=== PATIENT | female | born 2000 | race Hispanic/Latino ===

== ENCOUNTER 2024-12-17 10:59 | Inpatient (IN) | payer OTHER, SELFPAY ==
[2024-12-17] MEDS ORDERED: HYDROcodone/Acetaminophen 5/325 mg Tablet PO PRN (11:23)
[2024-12-17] MEDS ORDERED: Carboprost 250 MCG/ML AMP IM PRN (11:23)
[2024-12-17] MEDS ORDERED: Ondansetron PF 4 MG/2 ML Vial IVP PRN ×2 (11:23→13:45)
[2024-12-17] MEDS ORDERED: Diphenoxylate HCl/Atropine Tablet PO PRN ×2 (11:23)
[2024-12-17] MEDS ORDERED: hydrALAZINE 20 MG/ML VIAL SLOW IVP PRN ×3 (11:23→13:45)
[2024-12-17] MEDS ORDERED: Methylergonovine 0.2 MG/ML VIAL IM PRN ×2 (11:23→13:45)
[2024-12-17] MEDS ORDERED: Lidocaine 1% (PF) 30 ML VIAL SC PRN (11:23)
[2024-12-17] MEDS ORDERED: Oxytocin 30 units/NS 500 ML 500 ML IV SCH ×4 (11:30→13:45)
[2024-12-17 11:37] LABS: Hematocrit 34.2 % (34.9-44.5); Hemoglobin 10.8 g/dL (12.0-15.5); Mean Corpuscular Hemoglobin 26.3 pg (27.0-33.0); Mean Corpuscular Volume 83.2 fL (81.6-98.3); Platelet Count 208 10x3/uL (150-450); Red Blood Cell (RBC) Count 4.11 10x6/uL (3.90-5.03); White Blood Cell (WBC) Count 10.94 10x3/uL (3.5-10.5)
[2024-12-17 11:55] VITALS: BMI 34.3
[2024-12-17 12:13] LABS: Syphilis Antibody Index 0.05 S/CO (<1.00 Non-Reactive)
[2024-12-17 12:14] LABS: Hep B Surf Ag - L&D Non-Reactive S/CO (NonReactive)
[2024-12-17] MEDS: Oxytocin 30 units/NS 500 ML 500 ML ONE (13:13)
[2024-12-17] MEDS: Lidocaine 1% (PF) 30 ML VIAL ONE (13:15)
[2024-12-17] MEDS: Ibuprofen 800 MG TAB PO PRN (13:42)
[2024-12-17] MEDS ORDERED: Preparation H Ointment 28 GM TUBE PR PRN (13:45)
[2024-12-17] MEDS ORDERED: Benzocaine-Menthol 82.5 ML CAN TOP PRN (13:45)
[2024-12-17] MEDS ORDERED: Boostrix 0.5 ML (Tdap) VIAL (>/=7 yrs of age) IM ONE (13:45)
[2024-12-17] MEDS ORDERED: Bisacodyl 10 MG SUPP PR PRN (13:45)
[2024-12-17] MEDS ORDERED: Milk Of Magnesia 30 ML UDCUP PO PRN (13:45)
[2024-12-17] MEDS: HYDROcodone/Acetaminophen 5/325 mg Tablet PO PRN (16:08)
[2024-12-17] MEDS: Ferrous Sulfate 325 MG TAB PO SCH (18:41)
[2024-12-17] MEDS: Ibuprofen 800 MG TAB PO SCH (21:27)
[2024-12-18 04:18] LABS: #Basophils Less than 0.03 10x3/uL (0.0-0.2); #Eosinophils 0.06 10x3/uL (0.0-0.5); #Monocytes 0.56 10x3/uL (0.0-1.1); #Neutrophils 8.00 10x3/uL (1.5-8.4); %Basophils 0.2 % (0.0-2.0); %Eosinophils 0.6 % (0.0-6.0); %Lymphocytes 18.8 % (18.0-47.0); %Monocytes 5.2 % (0.0-10.0); %Neutrophils 74.7 % (40.0-75.0); Hematocrit 27.7 % (34.9-44.5); Hemoglobin 8.6 g/dL (12.0-15.5); Mean Corpuscular Hemoglobin 25.9 pg (27.0-33.0); Mean Corpuscular Volume 83.4 fL (81.6-98.3); Platelet Count 160 10x3/uL (150-450); Red Blood Cell (RBC) Count 3.32 10x6/uL (3.90-5.03); White Blood Cell (WBC) Count 10.70 10x3/uL (3.5-10.5)
[2024-12-18 12:46] VITALS: BP 101/55; TEMP 98.2
== END 2024-12-18 15:10 | disposition home or self-care (01) | DRG 807 ==
LOC: CSHLD/OP 10:59 → CSHLD 11:37 → CSHPP 16:15
PROVIDERS: ADMIT Obstetrics & Gynecology; ATTEND Obstetrics & Gynecology
PROC: 0HQ9XZZ Repair Perineum Skin, External Approach (ICD-10-PCS; principal; 2024-12-17)
PROC: 10907ZC Drainage of Amniotic Fluid, Therapeutic from Products of Conception, Via Natural or Artificial Opening (ICD-10-PCS; principal; 2024-12-17)
PROC: 10E0XZZ Delivery of Products of Conception, External Approach (ICD-10-PCS; principal; 2024-12-17)
DX: O99.214 Obesity complicating childbirth (principal); Z37.0 Single live birth; E66.9 Obesity, unspecified; Z3A.39 39 weeks gestation of pregnancy; O70.0 First degree perineal laceration during delivery
CPT/HCPCS: 36415; 85025; 85027; 86780; 86850; 86900; 86901; 87340; 99285; J2590